=== PATIENT | male | born 1990 | race Caucasian/White ===

== ENCOUNTER 2016-06-16 10:10 | Emergency (ER) | payer OTHER ==
[~2016-06-16] VITALS: Ht 170.2 cm; Wt 82.7 kg
[~2016-06-16 10:10] MED LIST: TRAZODONE HCL50 MG PO; ZOLOFT100 MG PO
[2016-06-16 13:35] VITALS: BP 149/81
== END 2016-06-16 13:35 | disposition home or self-care (01) ==
LOC: EME 10:10
DX: S51.812A Laceration without foreign body of left forearm, initial encounter (principal); W29.3XXA Contact with powered garden and outdoor hand tools and machinery, initial encounter; Y93.89 Activity, other specified; F17.200 Nicotine dependence, unspecified, uncomplicated; Z23 Encounter for immunization
CPT/HCPCS: 99281; 99284

== ENCOUNTER 2017-08-26 12:52 | Emergency (ER) | payer OTHER ==
[~2017-08-26] VITALS: Ht 170.2 cm; Wt 84.5 kg
[2017-08-26 14:59] VITALS: BP 139/91
== END 2017-08-26 15:00 | disposition home or self-care (01) ==
LOC: EME 12:52
PROC: 0HQEXZZ Repair Left Lower Arm Skin, External Approach (ICD-10-PCS; principal; 2017-08-26)
DX: S51.812A Laceration without foreign body of left forearm, initial encounter (principal); W29.3XXA Contact with powered garden and outdoor hand tools and machinery, initial encounter; Y93.89 Activity, other specified; F17.200 Nicotine dependence, unspecified, uncomplicated
CPT/HCPCS: 99281; 99284

== ENCOUNTER 2017-11-12 21:59 | Emergency (ER) | payer OTHER | END 2017-11-12 22:18 | disposition left against medical advice (07) | LOC: EME 21:59 | DX: M79.641 Pain in right hand (principal); Z53.21 Procedure and treatment not carried out due to patient leaving prior to being seen by health care provider ==